=== PATIENT | female | born 1935 | race Two or more races ===

== ENCOUNTER 2018-09-16 14:19 | Outpatient (CLI) | payer OTHER ==
[~2018-09-16 14:19] MED LIST: CALTRATE 600600 MG PO; CELEBREX50 MG PO; COD LIVER OIL1 EACH PO; EXCEDRIN BACK &1 TAB; NEURONTIN300 MG PO; VIT C-BIOFLAVO1 EACH PO
== END 2018-09-16 14:25 | disposition home or self-care (01) ==
LOC: RAD 14:19
DX: M25.561 Pain in right knee (principal); M25.562 Pain in left knee

== ENCOUNTER 2018-09-18 11:47 | Outpatient (CLI) | payer OTHER | END 2018-09-18 11:56 | disposition home or self-care (01) | LOC: RAD 11:47 | DX: M54.5 Low back pain (principal); M54.16 Radiculopathy, lumbar region ==

== ENCOUNTER 2018-09-22 09:00 | Outpatient (CLI) | payer OTHER | END 2018-09-22 09:18 | disposition home or self-care (01) | LOC: NUCLEAR 09:00 | DX: M25.461 Effusion, right knee (principal); M25.462 Effusion, left knee; I87.2 Venous insufficiency (chronic) (peripheral) ==

== ENCOUNTER 2018-10-01 12:05 | Outpatient (CLI) | payer OTHER | END 2018-10-01 15:00 | disposition home or self-care (01) | LOC: RAD 12:05 | DX: M54.5 Low back pain (principal); M54.6 Pain in thoracic spine ==

== ENCOUNTER 2018-10-21 11:09 | Outpatient (CLI) | payer OTHER | END 2018-10-21 11:14 | disposition home or self-care (01) | LOC: RAD 11:09 | DX: S80.11XD Contusion of right lower leg, subsequent encounter (principal); M75.101 Unspecified rotator cuff tear or rupture of right shoulder, not specified as traumatic; M75.102 Unspecified rotator cuff tear or rupture of left shoulder, not specified as traumatic ==

== ENCOUNTER → 2018-12-01 06:00 | Outpatient (CLI) | payer OTHER | END | disposition home or self-care (01) | LOC: LAB 06:00 → AMB-ENDOS 12-04 06:51 → EDSTATUS 12-04 18:23 | DX: K64.2 Third degree hemorrhoids (principal); K92.2 Gastrointestinal hemorrhage, unspecified; Z86.010 Personal history of colon polyps ==

== ENCOUNTER 2023-01-21 11:24 | Outpatient (CLI) | payer OTHER | END 2023-01-21 11:33 | disposition home or self-care (01) | LOC: RAD 11:24 | PROVIDERS: ATTEND Orthopaedic Surgery | DX: M25.561 Pain in right knee (principal); M25.562 Pain in left knee; M54.59 Other low back pain ==